=== PATIENT | female | born 1970 | race Two or more races ===

== ENCOUNTER → 2017-05-06 | Outpatient (CLI) | payer OTHER ==
--- NOTE | 2017-05-06 17:38 | REP ---
TRIPLE PHASE BONE SCAN OF THE KNEES: Following the intravenous administration of 22 millicuries of technetium 99 MDP, patients knees were imaged in the flow phase in the anterior ans posterior projections showing symmetric blood flow. Immediate blood pool and 2 hour delayed images are performed of the knees and anterior, posterior, and both lateral projections. There is no abnormal blood pooling bilaterally. Delayed imaged show some minimal subtle increased uptake asymmetrically posteromedially in the distal end of the right femur. This is at the site of the abnormality seen on prior radiographs and MRI performed at [place], performed 04/19/2017 and 04/22/2017. IMPRESSION: Minimal increased delayed radiotracer uptake in the posteromedial aspect of the distal right femur at the site of the osseous abnormality. Signed by Zach Junior MD 05/06/2017 06:11 P
== END ==
LOC: M RAD 08:15
PROVIDERS: ATTEND Internal Medicine
DX: M89.9 Disorder of bone, unspecified (principal)

== ENCOUNTER → 2017-05-11 | Outpatient (CLI) | payer OTHER ==
--- NOTE | 2017-05-11 17:45 | REP ---
MRI RIGHT KNEE WITHOUT AND WITH CONTRAST: 05/11/2017: Comparison: Three-phase bone scan 05/06/2017, MRI right knee without contrast 04/22/2017, x-ray 04/19/2017. Clinical history: Recent MR knee for fairly well defined mildly sclerotic lesion in the distal femoral diametaphysis with slight endosteal scalloping on the MRI, no cortical disruption or periosteal reaction. No other lesion visible. It was slightly hypointense on the T1 precontrast MRI and slightly hyperintense on the fat suppressed T2 precontrast study. Technique: Axial PD fat-suppressed, sagittal PD, T2 STIR and gradient echo images, coronal PD and fat suppressed PD with T1 fat suppressed sequence and axial fat suppressed T1 sequence. After enhancement with 14 mL of gadolinium contrast. Coronal axial and sagittal fat suppressed sequences were provided. Findings: A fairly well-defined but subtle lesion on the axial PD fat-suppressed lesions does show some mild scalloping of the endosteal cortex. It is in the distal diametaphysis posterior medially to the femur. I do not see periosteal reaction on the coronal PD sequence without fat suppression. Lesion is lobulated fairly well defined with some scattered dark foci within which are ill-defined. Fat suppressed PD sequence is less apparent indicating that it has a fat content. Shows tiny hypointense foci scattered around and also ill-defined in that sequence. On the fat suppressed T2 and STIR sequences similar less well-defined margins and scattered tiny hyperintense foci suggesting fatty content of this lesion. No other bony abnormalities. The knee shows no joint effusion, cruciates and menisci were grossly intact. Contrast administration shows very mild enhancement and a fairly homogeneous pattern similar to the visibility on plain radiograph and PD sequences with T1 sequences on the precontrast images by both contour and size. There are no other findings are areas of enhancement in the distal femur. Impression: 1. There is subtle enhancement on MRI of this lesion with some fat content and mild sclerosis on x-ray shows very subtle increased uptake on bone scan previously noted. No other abnormal uptake. No periosteal reaction. Some endosteal scalloping. Given the patients' age and location of this lesion, healed or healing non-ossifying fibroma could be considered but enchondroma is also a consideration. Given the subtle enhancement, the patient's symptoms, consideration for a low grade chondrosarcoma is also warranted. There is certainly no other lesion, destruction of the cortex or significant aggressive features. Regardless, I would consider this an atypical lesion that needs close observation or even orthopedic oncologic consultation. It does not fit the classical pattern for certainly benign, nonaggressive lesions. I suspect it is an atypical appearance for one of these benign lesions but acknowledge low grade aggressive lesion not excluded. Signed by Yefri Walters MD 05/11/2017 07:11 P
== END ==
LOC: M RAD 14:04
PROVIDERS: ATTEND Student in an Organized Health Care Education/Training Program
DX: M25.561 Pain in right knee (principal)